=== PATIENT | male | born 1950 | race Caucasian/White ===

== ENCOUNTER → 2020-05-29 | Outpatient (CLI) | payer MEDICARE ==
[2020-05-29 15:54] LABS: CREATININE 1.6 mg/dL (0.6-1.3)
== END ==
LOC: M.RAD 15:09
PROVIDERS: ATTEND Internal Medicine Critical Care Medicine
DX: R06.02 Shortness of breath (principal); R07.1 Chest pain on breathing; Z95.5 Presence of coronary angioplasty implant and graft; Z87.891 Personal history of nicotine dependence

== ENCOUNTER → 2020-07-24 | Outpatient (CLI) | payer MEDICARE ==
--- NOTE | 2020-07-26 12:19 | PF ---
[address] [address] PULMONARY FUNCTION REPORT Name: NICOLE FAITH Room: [facility]#: [id number] Admission: 07/24/20 Attend Phys: Gregorio Tse MD Discharge: Date of : 46 Report #: [id number] THIS REPORT FOR: //name// CC: Gregorio Keyes DATE OF SERVICE: 07/24/2020 INTERPRETATION: The FEV1/FVC ratio is normal at 73% with an FVC normal at 95% and FEV1 normal at 94%. The CGR10-14 is also normal at 98%. The patient's post-bronchodilator FEV1 is 3.18 liters. There is no significant reversibility noted. The total lung capacity is normal at 97%. The residual volume is normal at 102%. The DLCO as adjusted for hemoglobin is decreased to 64%. The flow volume loop is concave upwards. IMPRESSION: 1. The spirometry is normal; however, the flow volume loop is concave upwards, which could indicate a minimal to mild underlying obstructive lung disease. This could also be a normal variant. 2. Lung volumes are normal. 3. Mild reduction in DLCO to 64%. <ELECTRONICALLY SIGNED> By: Gregorio Tse MD 07/26/20 1219 0900 [id number] henrik Cordova
== END ==
LOC: M.PUL 08:00
PROVIDERS: ATTEND Internal Medicine Critical Care Medicine
DX: R06.02 Shortness of breath (principal); Z87.891 Personal history of nicotine dependence

== ENCOUNTER 2020-11-03 03:01 | Emergency (ER) | payer MEDICARE ==
[~2020-11-03] VITALS: Ht 177.8 cm; Wt 81.6 kg
[2020-11-03] MEDS ORDERED: TRANDOLAPRIL2 MG PO (03:14)
[2020-11-03] MEDS ORDERED: CRESTOR5 MG (03:15)
[2020-11-03 03:19] LABS: ABSOLUTE BASOPHILS 0.1 thou/uL (0.0-0.2); ABSOLUTE EOSINOPHILS 0.2 thou/uL (0.0-0.7); ABSOLUTE LYMPHOCYTES 2.3 thou/uL (0.8-5.3); ABSOLUTE MONOCYTES 0.9 thou/uL (0.0-1.2); ABSOLUTE NEUTROPHILS 4.4 thou/uL (1.6-8.1); BASOPHILS 0.7 %; EOSINOPHILS 2.7 %; HEMATOCRIT 45.8 % (42.0-52.0); HEMOGLOBIN 15.5 gm/dL (14.0-18.0); LYMPHOCYTES 28.7 %; MCH 30.5 pg (26.0-34.0); MCHC 33.8 g/dL (28.0-37.0); MCV 90.4 fL (80.0-100.0); MPV 7.9 fl. (7.2-11.1); NUCLEATED RBCS 0 /100WBC; PLATELET COUNT* 199 thou/uL (150-400); POLYS 55.9 %; RBC 5.07 mil/uL (4.50-6.00); RDW-CV 14.3 % (10.5-14.5); WBC 7.9 thou/uL (4.0-11.0)
[2020-11-03 03:27] LABS: CALCIUM 8.9 mg/dL (8.5-10.1); CREATININE 1.5 mg/dL (0.6-1.3); POTASSIUM 3.4 mmol/L (3.5-5.1)
[2020-11-03 03:31] LABS: APTT 25.9 Seconds (25.0-31.3); PROTIME 10.3 Seconds (9.20-11.50)
[2020-11-03 03:36] LABS: ALBUMIN 4.1 g/dL (3.4-5.0); TOTAL BILIRUBIN 0.6 mg/dL (<0.1-1.0); TOTAL PROTEIN 7.6 g/dL (6.4-8.2)
[2020-11-03 05:46] VITALS: BP 160/101
--- NOTE | 2020-11-03 10:23 | EKG ---
[place] [address] ELECTROCARDIOGRAM REPORT Name: NICOLE FAITH Room: [facility]#: [id number] Admission: 11/03/20 Attend Phys: Discharge: 11/03/20 Date of : 46 Date of Service: 11/03/20304 Report #: [id number] THIS REPORT FOR: //name// [facility] ED Test Date: 2020-11-03 Test Time: 03:05:11 Pat Name: NICOLE FAITH Department: Room: Gender: Scrip Clerk: [place] : 1950 Requested By: Yvonne Morrison Order Number: [id number] MD: Braulio James Measurements Intervals [place] Rate: 56 P: 59 [place]: 180 QRS: 12 QRSD: 80 T: 25 QT: 432 QTc: 417 Interpretive Statements Sinus rhythm Compared to ECG 06/04/2006 09:54:29 No significant changes Electronically Signed On 11-03-2020 10:23:22 [employer] by Braulio James [email or web address] <ELECTRONICALLY SIGNED> By: Braulio James MD, [facility] 11/03/20 1023 0305 Braulio James MD, FAC /EPI
== END 2020-11-03 05:46 | disposition left against medical advice (07) ==
LOC: M.ERS 03:01
PROVIDERS: Personal Emergency Response Attendant
DX: K80.20 Calculus of gallbladder without cholecystitis without obstruction (principal); N20.0 Calculus of kidney; N21.0 Calculus in bladder; E78.5 Hyperlipidemia, unspecified; Z79.899 Other long term (current) drug therapy; Z88.2 Allergy status to sulfonamides; Z91.041 Radiographic dye allergy status; Z20.828 Contact with and (suspected) exposure to other viral communicable diseases